=== PATIENT | male | born 1995 | race Caucasian/White ===

== ENCOUNTER 2017-10-08 14:31 | Emergency (ER) | payer MEDICAID, OTHER ==
[2017-10-08] MEDS: ACETAMINOPHEN 325 MG TAB PO (14:52)
[2017-10-08] MEDS: IBUPROFEN 600 MG TAB PO (14:52)
== END 2017-10-08 15:17 | disposition home or self-care (01) ==
LOC: FTE 14:31
DX: B08.5 Enteroviral vesicular pharyngitis (principal)
CPT/HCPCS: 99283; Z7502